=== PATIENT | female | born 1955 | race Caucasian/White ===

== ENCOUNTER 2021-02-04 12:23 | Emergency (ER) | payer MEDICARE, OTHER ==
[~2021-02-04 12:23] MED LIST: ESTRACE1 MG PO; SINEMET 25-2501 EACH PO; SYNTHROID50 MCG PO; VIACTIV 650 MG1 EACH PO; VITAMIN B-121000 MC1 PO; ZOCOR20 MG PO
[2021-02-04 13:56] LABS: BASOPHIL 0.1 % (0-2); EOSINOPHIL 1.9 % (0-7); HCT 48.5 % (37.0-47.0); HGB 16.1 g/dl (12.5-16.0); LYMPHOCYTE 15.8 % (15-48); MCH 33.4 pg (25.0-31.0); MCHC 33.2 g/dL (32.0-36.0); MCV 100.6 fL (78.0-100.0); MPV 9.9 fL (6.0-9.5); NEUTROPHIL 68.9 % (41-80); NRBC 0; PLT 257 K/uL (150-400); RBC 4.82 M/uL (4.20-5.40); RDW 12.1 % (11.5-14.0); WBC 9.6 K/uL (4.0-10.5)
[2021-02-04 14:39] LABS: CREATININE 0.86 mg/dL (0.51-0.95); POTASSIUM 3.8 mmol/L (3.5-5.1)
[2021-02-04] MEDS ORDERED: BENADRYL25 M1 PO (15:33)
== END 2021-02-04 16:10 | disposition home or self-care (01) ==
LOC: FER 12:23
PROVIDERS: Emergency Medicine
DX: T63.441A Toxic effect of venom of bees, accidental (unintentional), initial encounter (principal); G20 Parkinson's disease; Z88.0 Allergy status to penicillin; Z87.891 Personal history of nicotine dependence; Z79.899 Other long term (current) drug therapy
CPT/HCPCS: 36415; 80048; 85025; J1200; J2930